=== PATIENT | female | born 1985 | race Caucasian/White ===

== ENCOUNTER 2016-10-17 13:36 | Inpatient (IN) | payer BC ==
[2016-10-17 14:25] LABS: HEMOGLOBIN 12.3 gm/dl (12.3-15.3); RED BLOOD COUNT 3.8 M/UL (4.00-5.10); WHITE BLOOD COUNT 10.1 K/UL (4.5-11.0)
[2016-10-20 02:46] LABS: HEMOGLOBIN 10.5 gm/dl (12.3-15.3)
== END 2016-10-21 08:00 | disposition home or self-care (01) | DRG 765 ==
LOC: GENOP 13:36 → OB 10-19 10:44
PROVIDERS: ADMIT Obstetrics & Gynecology
PROC: 3E0R3CZ (ICD-10-PCS; 2016-10-19)
PROC: 10D00Z1 Extraction of Products of Conception, Low, Open Approach (ICD-10-PCS; principal; 2016-10-19 12:32)
PROC: 3E0234Z Introduction of Serum, Toxoid and Vaccine into Muscle, Percutaneous Approach (ICD-10-PCS; 2016-10-20)
DX: O34.211 Maternal care for low transverse scar from previous cesarean delivery (principal); O99.12 Other diseases of the blood and blood-forming organs and certain disorders involving the immune mechanism complicating childbirth; D68.51 Activated protein C resistance; O41.03X0 Oligohydramnios, third trimester, not applicable or unspecified; N85.8 Other specified noninflammatory disorders of uterus; O26.893 Other specified pregnancy related conditions, third trimester; Z67.11 Type A blood, Rh negative; Z3A.39 39 weeks gestation of pregnancy; Z37.0 Single live birth; O34.43 Maternal care for other abnormalities of cervix, third trimester; N88.9 Noninflammatory disorder of cervix uteri, unspecified; O99.214 Obesity complicating childbirth; E66.9 Obesity, unspecified; Z68.30 Body mass index [BMI] 30.0-30.9, adult; Z23 Encounter for immunization; Z87.891 Personal history of nicotine dependence; Z79.82 Long term (current) use of aspirin; Z80.3 Family history of malignant neoplasm of breast; Z83.3 Family history of diabetes mellitus; Z83.2 Family history of diseases of the blood and blood-forming organs and certain disorders involving the immune mechanism
CPT/HCPCS: 36415; 81001; 82800; 85014; 85018; 85025; 85461; 86900; 86901; 90715; C9113; J0690; J2590; J2765; J3010; J3430; J7120

== ENCOUNTER 2020-09-29 07:07 | Emergency (ER) | payer BC, OTHER ==
[2020-09-29 08:25] LABS: HEMOGLOBIN 13.9 gm/dl (12.3-15.3); RED BLOOD COUNT 4.32 M/UL (4.00-5.10)
[2020-09-29 08:43] LABS: BUN/CREATININE RATIO 23 (0-10)
[2020-09-29] MEDS ORDERED: ONDANSETRON ODT4 MG SL (09:31)
[2020-09-29] MEDS ORDERED: PROTONIX40 MG PO (09:31)
== END 2020-09-29 10:05 | disposition home or self-care (01) ==
LOC: ER1 07:07
PROVIDERS: Physician Assistant
DX: R10.12 Left upper quadrant pain (principal); R10.11 Right upper quadrant pain; R10.13 Epigastric pain
CPT/HCPCS: 76705; 80053; 81001; 83690; 84703; 85025; 87086; 96374; 99284; C9113

== ENCOUNTER → 2020-11-13 | Outpatient (CLI) | payer BC ==
[~2020-11-13] MED LIST: ONDANSETRON ODT4 MG SL; PROTONIX40 MG PO
== END ==
LOC: EMI 10:33
DX: R51.9 Headache, unspecified (principal)
CPT/HCPCS: 70553; A9577

== ENCOUNTER → 2021-03-07 | Outpatient (CLI) | payer BC | LOC: EMI 15:58 | DX: G44.229 Chronic tension-type headache, not intractable (principal) | CPT/HCPCS: 70544 ==